=== PATIENT | male | born 1960 | race Caucasian/White ===

== ENCOUNTER 2024-03-11 15:26 | Emergency (ER) | payer OTHER ==
[2024-03-11 15:47] VITALS: BP 150/84; O2SAT 98
--- NOTE | 2024-03-11 16:56 | ED Physician Documentation ---
History of Present Illness - Stated complaint Stated Complaint: L ARM LAC - Chief complaint Chief Complaint: Trauma Ext - History obtained from History obtained from: Patient - History of Present Illness Timing: Today Pain level max: 5 Pain level now: 5 - Additonal information Additional information: 64-year-old male states that he was picking up a piece of sheet metal when it slipped and cut him on the left forearm. No numbness or tingling. Tetanus up-to-date. States he could not get the bleeding to stop at home, came here for evaluation. Not on blood thinners. Nothing makes it better or worse. PD PAST MEDICAL HISTORY - Past Medical History Past Medical History: Yes Cardiovascular: High cholesterol - Past Surgical History Past Surgical History: Yes Cardiovascular: Coronary stent Derm: Skin cancer surgery - Allergies Allergies/Adverse Reactions: Allergies Allergy/AdvReac Type Severity Reaction Status Date / Time codeine AdvReac Nausea Verified 03/11/24 15:44 - Social History Does the pt smoke?: No Smoking Status: Never smoker Does the pt drink ETOH?: No Does the pt have substance abuse?: No PD ED PE NORMAL - Vitals Vital signs reviewed: Yes - General General: Alert and oriented X 3, No acute distress - Derm Derm: Warm and dry - Extremities Extremities: Other (5 cm curved laceration to the dorsum of the left forearm, subcutaneous. Neurovascular intact. All tendons intact to the hand and fingers.) - Neuro Neuro: Alert and oriented X 3 Results - Vitals Vitals: Vital Signs - 24 hr 03/11/24 15:33 Temperature 36.7 C Heart Rate 93 Respiratory 18 Rate Blood Pressure 150/84 H O2 Saturation 98 Oxygen O2 Source Room air Procedures - Laceration (location) Left forearm Length in cm: 5 Wound type: Curved, Into subcut fat, Clean Neurovascular status: Sensory intact, Motor intact, Vascular intact Tendon involvement: Tendon intact Anesthesia: Lidocaine 1% with epi Wound preparation: Irrigated copiously NS, Wound explored, To the base Skin layer closure: Nylon, Interrupted, Size #-0 - enter number (4) Other: Patient tolerated well, No complications, Neurovascular intact, Dressing applied, Tetanus UTD PD Medical Decision Making - ED course Complexity details: re-evaluated patient, considered differential, d/w patient ED course: Laceration repaired. Tolerated well. No complications. No tendon injury. Neurovascular intact. Tetanus shot up-to-date. Warnings of infection and instructions on wound care given at bedside. Also counseled on how to minimize scarring. Patient counseled regarding signs and symptoms for which I believe and urgent re-evaluation would be necessary. Patient with good understanding of and agreement to plan and is comfortable going home at this time This document was made in part using voice recognition software. While efforts are made to proofread this document, sound alike and grammatical errors may occur. Departure - Departure Disposition: 01 Home, Self Care Clinical Impression: Forearm laceration Qualifiers: Encounter type: initial encounter Laterality: left Qualified Code(s): S51.812A - Laceration without foreign body of left forearm, initial encounter Condition: Good Instructions: ED Laceration Ext Sutr Stap Tape Follow-Up: your,doctor in 10-14 days for suture removal [Other] Comments: Please follow-up with your doctor in approximately 10 to 14 days for suture removal. Keep the wound clean. Cover it whenever you are outside or doing anything dirty. Return if you notice redness, swelling or drainage from the wound. As these are signs that could be getting infected and you may need antibiotics at that time. Forms: PCP List Discharge Date/Time: 03/11/24 17:13
[2024-03-11] MEDS: BACITRACIN ZINC OINT 1 PACKET TOP STA (17:05)
== END 2024-03-11 17:13 | disposition home or self-care (01) ==
LOC: ED 15:26
DX: S51.812A Laceration without foreign body of left forearm, initial encounter (principal); W26.9XXA Contact with unspecified sharp object(s), initial encounter; E78.00 Pure hypercholesterolemia, unspecified; Z85.828 Personal history of other malignant neoplasm of skin
CPT/HCPCS: 12002; 99283; A9270